=== PATIENT | female | born 1990 | race African-American/Black ===

== ENCOUNTER 2018-11-29 09:10 | Emergency (ER) | payer SELFPAY ==
--- NOTE | 2018-11-29 09:37 | RAD ---
XR Shoulder Lt 3 View STANDARD: 11/29/2018 9:15 AM CLINICAL INDICATION: Left shoulder injury. COMPARISON: None. FINDINGS: Bones: No acute fracture. Glenohumeral joint: Normal alignment. AC joint: There is very subtle elevation of the distal clavicle relationship to the acromion which ma y reflect a mild grade 2 AC separation. Recommend correlation. Visualized lung: Clear. Soft tissues: Within normal limits. IMPRESSION: Very subtle elevation of the distal left clavicle relationship to the acromial process may reflect a mild grade 2 AC separation. Recommend correlation. No acute fracture is demonstrated.
[2018-11-29] MEDS ORDERED: HYDROcodone/Acetaminophen 10/325 mg Tablet ONE (10:57)
== END 2018-11-29 11:10 | disposition home or self-care (01) ==
LOC: ERS 09:10
DX: S43.102A Unspecified dislocation of left acromioclavicular joint, initial encounter (principal); Y93.72 Activity, wrestling; X58.XXXA Exposure to other specified factors, initial encounter